=== PATIENT | female | born 1945 | race Caucasian/White ===

== ENCOUNTER 2017-12-27 05:20 | Day surgery (SDC) | payer OTHER ==
[~2017-12-27 05:20] MED LIST: COZAAR50 MG; INTESTINEX680 MG PO; OXYC1TAB9 PO; POLY119PG PO; ULTRAM50 MG PO
== END 2017-12-27 10:40 | disposition home or self-care (01) ==
LOC: CIR.AMB 05:20
DX: K57.30 Diverticulosis of large intestine without perforation or abscess without bleeding (principal); K63.89 Other specified diseases of intestine

== ENCOUNTER 2018-02-15 10:52 | Outpatient (CLI) | payer OTHER | END 2018-02-15 10:53 | disposition home or self-care (01) | LOC: RAD 10:52 | DX: Z93.3 Colostomy status (principal); Z08 Encounter for follow-up examination after completed treatment for malignant neoplasm ==

== ENCOUNTER → 2018-02-27 | Day surgery (SDC) | payer OTHER ==
[~2018-02-27] MED LIST changes: +ULTRACET PO
== END | disposition home or self-care (01) ==
LOC: ADM 02-18 10:45 → CIR.AMB 02-20 10:45
DX: C20 Malignant neoplasm of rectum (principal)

== ENCOUNTER 2018-06-19 08:41 | Outpatient (CLI) | payer OTHER | END 2018-06-19 09:06 | disposition home or self-care (01) | LOC: LAB 08:41 | DX: C20 Malignant neoplasm of rectum (principal); D63.0 Anemia in neoplastic disease; D51.3 Other dietary vitamin B12 deficiency anemia; D50.0 Iron deficiency anemia secondary to blood loss (chronic); Z92.21 Personal history of antineoplastic chemotherapy; I10 Essential (primary) hypertension; Z93.3 Colostomy status; E03.8 Other specified hypothyroidism; D50.8 Other iron deficiency anemias; D51.8 Other vitamin B12 deficiency anemias; D55.0 Anemia due to glucose-6-phosphate dehydrogenase [G6PD] deficiency; D51.1 Vitamin B12 deficiency anemia due to selective vitamin B12 malabsorption with proteinuria; D51.0 Vitamin B12 deficiency anemia due to intrinsic factor deficiency; E06.3 Autoimmune thyroiditis; R97.0 Elevated carcinoembryonic antigen [CEA] ==

== ENCOUNTER 2018-06-19 12:51 | Outpatient (CLI) | payer OTHER | END 2018-06-19 12:54 | disposition home or self-care (01) | LOC: SONOGRAMA 12:51 | DX: E03.8 Other specified hypothyroidism (principal); E04.1 Nontoxic single thyroid nodule; C20 Malignant neoplasm of rectum; D63.0 Anemia in neoplastic disease; D51.3 Other dietary vitamin B12 deficiency anemia; D50.0 Iron deficiency anemia secondary to blood loss (chronic); Z92.21 Personal history of antineoplastic chemotherapy; I10 Essential (primary) hypertension; Z93.3 Colostomy status ==

== ENCOUNTER 2018-07-25 08:56 | Outpatient (CLI) | payer OTHER | END 2018-07-25 08:57 | disposition home or self-care (01) | LOC: SONOGRAMA 08:56 | DX: E04.1 Nontoxic single thyroid nodule (principal) ==

== ENCOUNTER 2019-04-03 05:30 | Day surgery (SDC) | payer OTHER | END 2019-04-03 10:25 | disposition home or self-care (01) | LOC: AMB-ENDOS 05:30 | DX: K57.30 Diverticulosis of large intestine without perforation or abscess without bleeding (principal) ==

== ENCOUNTER 2019-05-23 05:55 | Day surgery (SDC) | payer OTHER ==
[~2019-05-23 05:55] MED LIST changes: +INFUVITE50 ML PO; +LOSARTAN POTASS50 MG PO; +SYNTHROID50 MCG PO; +THYLENOL PO
== END 2019-05-23 18:55 | disposition home or self-care (01) ==
LOC: CIR.AMB 05:55
DX: D05.11 Intraductal carcinoma in situ of right breast (principal)

== ENCOUNTER 2019-06-13 10:21 | Outpatient (CLI) | payer OTHER | END 2019-06-13 10:49 | disposition home or self-care (01) | LOC: SONOGRAMA 10:21 | DX: C50.411 Malignant neoplasm of upper-outer quadrant of right female breast (principal); N61.1 Abscess of the breast and nipple; N61.0 Mastitis without abscess ==

== ENCOUNTER 2019-07-31 10:48 | Outpatient (CLI) | payer OTHER | END 2019-07-31 10:53 | disposition home or self-care (01) | LOC: NUCLEAR 10:48 | DX: M81.0 Age-related osteoporosis without current pathological fracture (principal); C50.411 Malignant neoplasm of upper-outer quadrant of right female breast; C20 Malignant neoplasm of rectum; N63.11 Unspecified lump in the right breast, upper outer quadrant; D63.0 Anemia in neoplastic disease; D51.3 Other dietary vitamin B12 deficiency anemia; D50.0 Iron deficiency anemia secondary to blood loss (chronic); Z92.21 Personal history of antineoplastic chemotherapy; I10 Essential (primary) hypertension; Z93.3 Colostomy status; E03.8 Other specified hypothyroidism; E04.2 Nontoxic multinodular goiter; D50.8 Other iron deficiency anemias; K90.89 Other intestinal malabsorption ==

== ENCOUNTER 2019-08-04 11:30 | Outpatient (CLI) | payer OTHER | END 2019-08-04 11:33 | disposition home or self-care (01) | LOC: SONOGRAMA 11:30 | DX: N61.1 Abscess of the breast and nipple (principal); C50.411 Malignant neoplasm of upper-outer quadrant of right female breast ==

== ENCOUNTER 2019-09-08 12:26 | Outpatient (CLI) | payer OTHER | END 2019-09-08 12:28 | disposition home or self-care (01) | LOC: SONOGRAMA 12:26 | DX: N61.1 Abscess of the breast and nipple (principal); C50.411 Malignant neoplasm of upper-outer quadrant of right female breast ==

== ENCOUNTER 2020-06-03 06:00 | Day surgery (SDC) | payer OTHER | END 2020-06-03 11:05 | disposition home or self-care (01) | LOC: AMB-ENDOS 06:00 | PROVIDERS: ATTEND Surgery | DX: D12.0 Benign neoplasm of cecum (principal); D12.2 Benign neoplasm of ascending colon; Z20.828 Contact with and (suspected) exposure to other viral communicable diseases; Z93.3 Colostomy status ==

== ENCOUNTER → 2021-03-15 09:13 | Outpatient (CLI) | payer OTHER | END | disposition home or self-care (01) | LOC: LAB 09:13 | PROVIDERS: ATTEND Internal Medicine Hematology & Oncology | DX: I10 Essential (primary) hypertension (principal); R74.02 Elevation of levels of lactic acid dehydrogenase [LDH]; K76.89 Other specified diseases of liver; E03.8 Other specified hypothyroidism; C50.919 Malignant neoplasm of unspecified site of unspecified female breast; R97.8 Other abnormal tumor markers; C50.411 Malignant neoplasm of upper-outer quadrant of right female breast; C20 Malignant neoplasm of rectum; N63.11 Unspecified lump in the right breast, upper outer quadrant; D51.3 Other dietary vitamin B12 deficiency anemia; D50.0 Iron deficiency anemia secondary to blood loss (chronic); Z92.21 Personal history of antineoplastic chemotherapy; Z93.3 Colostomy status; E04.2 Nontoxic multinodular goiter; K90.89 Other intestinal malabsorption ==

== ENCOUNTER 2024-02-08 06:00 | Day surgery (SDC) | payer OTHER ==
[~2024-02-08] VITALS: Ht 152.4 cm; Wt 64.4 kg
[~2024-02-08 06:00] MED LIST changes: +ANASTROZOLE1 MG PO; +MULTI VITAMIN1 EACH PO
[2024-02-08] MEDS ORDERED: CHLORHEXIDINE GLUCONATE 120 ML BOTTLE TOP ONE (20:01)
[2024-02-08] MEDS ORDERED: hydrALAZINE HCL 20 MG VIAL ONE (23:18)
== END 2024-02-09 01:20 | disposition home or self-care (01) ==
LOC: CIR.AMB 06:00
PROVIDERS: ATTEND Surgery
DX: D05.02 Lobular carcinoma in situ of left breast (principal); R59.0 Localized enlarged lymph nodes; Z88.6 Allergy status to analgesic agent; I10 Essential (primary) hypertension
CPT/HCPCS: 19301; 38525; 19281; A9541; L8699